=== PATIENT | female | born 1990 | race Caucasian/White ===

== ENCOUNTER 2024-02-04 10:35 | Emergency (ER) | payer OTHER, SELFPAY ==
[2024-02-04 10:41] VITALS: BP 153/93
--- NOTE | 2024-02-04 11:05 | ED.GENMED ---
History of Present Illness
General
Chief Complaint: Throat Problem
Time Seen by Provider: 02/04/24 10:59
Travel History
Have you had any contact with someone who has COVID-19?: No
Do you have any symptoms of coronavirus? Fever > 100 degrees, chills, cough, shortness of breath, sore throat, loss of taste or smell, muscle aches, or headache?: No
History of Present Illness
History of Present Illness:
33-year-old female with history of hypertension presents to the emergency department for evaluation of a transient sensation of throat swelling and tingling to the arms. The episodes occurred twice this morning without obvious trigger. Symptoms
lasted less than 5 minutes before resolving. She is currently asymptomatic. Has never had this in the past. Denies any associated chest pain or shortness of breath. No new medications or foods that she is aware of. No fevers or chills. Denies
coughing or shortness of breath. Does endorse significant work stress
Review of Systems
Review of Systems
Allergies reviewed?: Yes
All Other Systems: ROS reviewed and negative except as documented in HPI and ROS
Phy Exam
Physical Exam
Physical Exam:
GEN: Well appearing, NAD, WDWN
Eyes: PERRLA, EOMs intact, no scleral icterus
HENT: NCAT, oral mucosa moist, no tonsillar hypertrophy, no exudates, normal soft palate, no cervical adenopathy bilaterally
Lungs: CTAB, no wheezes, rales, rhonchi, normal chest wall excursion
Cardiac: RRR, no M/R/G, no peripheral edema. Radial pulses 2+ bilat
Neuro: AO x 3
MSK: No gross deformity or ecchymosis. No edema. No digital clubbing
Skin: No rashes, petechiae. Normal color, no pallor or jaundice.
Psych: Calm, cooperative, proper hygiene
Course
Vital Signs
Initial and Last Documented VS:
Initial Vital Signs
Temp Pulse Resp BP Pulse Ox
98.3 F 87 20 153/93 98
02/04/24 10:41 02/04/24 10:41 02/04/24 10:41 02/04/24 10:41 02/04/24 10:41
Last Documented Vital Signs
Temp Pulse Resp BP Pulse Ox
98.3 F 87 20 153/93 98
02/04/24 10:41 02/04/24 10:41 02/04/24 10:41 02/04/24 10:41 02/04/24 10:41
MDM/Problems Addressed
MDM/Problems Addressed:
Unclear etiology to the patient's symptoms. Exam is grossly benign, no clinical concern for infectious source. No associated rash or respiratory symptoms to suggest an allergic mediated response. Certainly psychosomatic/anxiety could play a role
here. Educated the patient on return precautions, monitor for any recurrent symptoms
*Critical Care Note
Total Time (30-74mins, 75-104mins- exclusive of procedures): Not Applicable
ED Attending Note
-
Portions of this chart may have been created with voice recognition software.� Occasional wrong word or��sound alike� substitutions may have occurred due to the inherent limitations of voice recognition software.
Discharge Plan
Departure
Patient Disposition: Home (Routine Discharge)
Date of Disposition: 02/04/24
Time of Disposition: 11:07
Patient with high blood pressure during this ER visit?: No
Discharge Problem:
Globus pharyngeus
Referrals:
Caroline Wall MD [Family Provider] -
Activity Restrictions/Additional Instructions:
Your examination shows no evidence of infection in the throat
Your airway appears clear
You have no rashes to suggest an allergic reaction
The cause of your symptoms is not clear at this time
Please monitor for any recurrence of symptoms and any correlation with food/medication intake, or any increased stress
Return if symptoms worsen or do not resolve
Interventions
Interventions:
*Risk Screen - Suicide Last Done: 02/04/24 10:49
*General Assessment Last Done: 02/04/24 10:49
*Neglect/Abuse Screening Last Done: 02/04/24 10:49
ED- Fall Risk Assessment Last Done: 02/04/24 10:50
*ED COVID-19 Vaccine History Last Done: 02/04/24 10:49
*Nursing Disposition Last Done: 02/04/24 11:20
ED-EENT Assessment Last Done: 02/04/24 10:49
ED- Pulmonary Assessment Last Done: 02/04/24 10:49
Discharge Date and Time
Discharge Date/Time: 02/04/24 11:15
Print Language: EGYPTIAN
--- NOTE | 2024-02-04 11:20 | EDRN ---
Discharge instructions given to patient by Zaid Tsai PA-C.
== END 2024-02-04 11:15 | disposition home or self-care (01) ==
LOC: EMR 10:35
PROVIDERS: EMERGENCY PHYSICIAN Emergency Medicine; FAMILY PHYSICIAN Internal Medicine
DX: F45.8 Other somatoform disorders (principal); I10 Essential (primary) hypertension; F41.9 Anxiety disorder, unspecified
CPT/HCPCS: 99282